=== PATIENT | male | born 1995 | race Caucasian/White ===

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

== ENCOUNTER 2017-02-14 17:55 | Emergency (ER) | payer OTHER ==
[~2017-02-14] VITALS: Ht 180.3 cm; Wt 83.2 kg
[2017-02-14] MEDS ORDERED: IBUP600T26 PO (19:48)
--- NOTE | 2017-02-14 19:52 | REP ---
RIGHT WRIST, FOUR VIEWS: HISTORY: Injury. There is no acute fracture or dislocation. The joint spaces are normal in appearance. IMPRESSION: There is no acute fracture or dislocation. Signed by Micah Pierce MD 02/14/2017 07:54 P
[2017-02-14 20:03] VITALS: BP 110/70
== END 2017-02-14 20:04 | disposition home or self-care (01) ==
LOC: M ED 19:58
DX: S63.501A Unspecified sprain of right wrist, initial encounter (principal); X50.9XXA Other and unspecified overexertion or strenuous movements or postures, initial encounter; Y92.9 Unspecified place or not applicable; Y93.61 Activity, american tackle football; Y99.1 Military activity